=== PATIENT | male | born 1960 | race Caucasian/White ===

== ENCOUNTER 2018-11-25 21:14 | Emergency (ER) | payer OTHER ==
[2018-11-25 21:33] VITALS: BP 156/91; PULSE 90; RESP 18; TEMP 98.5; O2SAT 99
--- NOTE | 2018-11-25 22:07 | ED PDOC ---
HPI: General Adult Time Seen by Provider: 11/25/18 22:05 Chief Complaint (Nursing): Upper Extremity Problem/Injury Chief Complaint (Provider): neck pain History Per: Patient (58 y/o male here with neck pain that began on Monday. States he has trouble moving neck rotating due to pain. Denies any fevers/chills. Attempted use of motrin 800mg and percocet 5/325 mg without relief. Has h/o arthritis and is on plaquenil.) Past Medical History Reviewed: Historical Data, Nursing Documentation, Vital Signs Vital Signs: Last Vital Signs Temp 98.5 F 11/25/18 21:30 Pulse 90 11/25/18 21:30 Resp 18 11/25/18 21:30 BP 156/91 H 11/25/18 21:30 Pulse Ox 99 11/25/18 21:30 - Medical History PMH: HTN - Family History Family History: States: Unknown Family Hx - Home Medications Home Medications: Ambulatory Orders Medication Instructions Recorded Cephalexin [Keflex] 500 mg PO Q6 #28 cap 11/23/15 Meloxicam [Mobic] 7.5 mg PO DAILY PRN #30 tab 11/23/15 Naproxen 375 mg PO Q8 PRN #21 tablet 11/25/18 diaZEpam [Valium] 5 mg PO Q8 PRN #3 tab 11/25/18 - Allergies Allergies/Adverse Reactions: Allergies Allergy/AdvReac Type Severity Reaction Status Date / Time No Known Allergies Allergy Verified 11/23/15 17:08 Review of Systems ROS Statement: Except As Marked, All Systems Reviewed And Found Negative Physical Exam - Reviewed Nursing Documentation Reviewed: Yes Vital Signs Reviewed: Yes - Physical Exam Appears: Positive for: Well, Non-toxic, No Acute Distress Head Exam: Positive for: NORMAL INSPECTION, NORMOCEPHALIC. Negative for: ATRAUMATIC (patient notes pain bilaterally base of skull.) Skin: Positive for: Normal Color, Warm, DRY Eye Exam: Positive for: EOMI, Normal appearance, PERRL ENT: Positive for: Normal ENT Inspection Neck: Positive for: Normal, Painless ROM Cardiovascular/Chest: Positive for: Regular Rate, Rhythm Respiratory: Positive for: CNT, Normal Breath Sounds Gastrointestinal/Abdominal: Positive for: Normal Exam, Soft Back: Positive for: Normal Inspection Extremity: Positive for: Normal ROM Neurologic/Psych: Positive for: Alert, Oriented - ECG O2 Sat by Pulse Oximetry: 99 - Progress ED Course And Treament: Patient does not want CT evaluation of head at this time. States he plans to f/u with pmd tomorrow. MOrphine 4mg IM x 1 dose for pain. Disposition - Clinical Impression Clinical Impression: Neck pain - Patient ED Disposition Is Patient to be Admitted: No - Disposition Disposition: Routine/Home Disposition Time: 22:31 Condition: FAIR Prescriptions: diaZEpam [Valium] 5 mg PO Q8 PRN #3 tab PRN Reason: Pain, Moderate (4-7) Naproxen 375 mg PO Q8 PRN #21 tablet PRN Reason: Pain, Moderate (4-7) Instructions: Neck Pain
[2018-11-25] MEDS ORDERED: Morphine 4 MG/ML VIAL ONE (22:14)
== END 2018-11-25 22:47 | disposition home or self-care (01) ==
LOC: H.ER 21:14
DX: M54.2 Cervicalgia (principal)
CPT/HCPCS: 96372; 99281; J2270